=== PATIENT | female | born 1960 | race Hispanic/Latino ===

== ENCOUNTER 2019-04-26 17:59 | Emergency (ER) | payer OTHER, SELFPAY ==
[2019-04-26] MEDS ORDERED: predniSONE 20 MG TAB ONE (18:54)
== END 2019-04-26 19:04 | disposition home or self-care (01) ==
LOC: NAV ERS 17:59
DX: M79.672 Pain in left foot (principal); F17.210 Nicotine dependence, cigarettes, uncomplicated
CPT/HCPCS: 99281; J7512